=== PATIENT | female | born 1995 | race Hispanic/Latino ===

== ENCOUNTER 2021-04-13 20:04 | Emergency (ER) | payer BC, OTHER ==
[~2021-04-13] VITALS: Ht 160 cm; Wt 108.0 kg
== END 2021-04-13 22:20 | disposition home or self-care (01) ==
LOC: ER 20:59
DX: S63.611A Unspecified sprain of left index finger, initial encounter (principal); M79.645 Pain in left finger(s); X50.1XXA Overexertion from prolonged static or awkward postures, initial encounter; Y92.89 Other specified places as the place of occurrence of the external cause
CPT/HCPCS: 99283